=== PATIENT | male | born 1935 | race Caucasian/White ===

== ENCOUNTER → 2018-07-20 | Outpatient (CLI) | payer MEDICARE ==
[~2018-07-20] MED LIST: ACETAMINOPHEN325 M1 PO; APAP W/CODEINE1 TA2 PO; ASPIR 8181 MG PO; BACTRIM DS TAB1 EACH PO; BLOOD PRESSURE PILL; DUONEB 2.5-0.5 M3 ML INH; ELIQUIS2.5 MG PO; FLOMAX0.4 MG PO; HEALTHY HEART1 EAC1 PO; HYTRIN 5 M5 MG/1 CAP PO; IBUPROFEN 400400 M1 PO; IRON325 PO; LANSOPRAZOLE15 MG PO; LEVAQUIN 750 M750 MG PO; LISINOPRIL2.5 MG; LISINOPRIL5 MG PO; LOPERAMIDE 2 MG2 M1; LOPRESSOR25 PO; METAMUCIL PAC1 UDPKT PO; MIRALAX17 GM PO; NOHOMEMEDICATIONS; NORCO 5-325 TA1 EAC1 PO; NORCO 5-325 TA1 EACH PO; NORFLEX100 MG PO; OXYCODONE-APAP1 EAC4 PO; PACERONE 200 M200 M1 PO; PERCOCET 5-3251 EACH PO; SENOKOT-S1 TA1 PO; TOPROL XL25 MG PO; TRAMADOL 50 MG50 MG PO; TRINATE TABLET1 TAB PO; VALIUM2 MG PO; VITAMIN D-32000 UNIT PO; XARELTO10 MG PO; XELODA500 MG PO
== END ==
LOC: M.RAD 11:36
DX: C18.9 Malignant neoplasm of colon, unspecified (principal); M47.814 Spondylosis without myelopathy or radiculopathy, thoracic region; I10 Essential (primary) hypertension; J44.9 Chronic obstructive pulmonary disease, unspecified; I48.91 Unspecified atrial fibrillation

== ENCOUNTER 2018-11-24 19:11 | Emergency (ER) | payer MEDICARE ==
[~2018-11-24] VITALS: Ht 188 cm; Wt 88.9 kg
[~2018-11-24 19:11] MED LIST changes: +FLAGYL500 M1 PO; +LEVSIN0.125 MG PO; +TYLENOL EXTRA500 MG PO
[2018-11-24 20:22] LABS: URINE BLOOD 3+ (Negative); URINE COLOR YELLOW; URINE GLUCOSE-RANDOM NEGATIVE (Negative); URINE KETONES NEGATIVE (Negative); URINE LEUKOCYTES-REFLEX 1+ (Negative); URINE NITRITE-REFLEX NEGATIVE (Negative); URINE PROTEIN 2+ (Negative); URINE SPECIFIC GRAVITY >= 1.030 (1.005-1.030); URINE UROBILINOGEN 0.2 E.U./dl (0.2-1.0)
[2018-11-24 20:28] LABS: ICTOTEST (BILI CONFIRMATORY) Negative (Negative); URINE BILIRUBIN 1+ (Negative); URINE CLARITY CLOUDY
[2018-11-24 20:30] LABS: URINE RBC >20 Many /HPF (0-2)
[2018-11-24 20:31] LABS: URINE WBC-REFLEX 6-15 Few /HPF (0-5)
[2018-11-24 20:32] LABS: CASTS None Seen /LPF (None Seen); URIC ACID CRYSTALS 4-10 Moderate /LPF (None Seen)
[2018-11-24 20:33] LABS: BACTERIA-REFLEX 1-9 Few /HPF (None Seen); MUCUS None Seen strn/LPF (None Seen); SQUAMOUS NONE SEEN /LPF (0-3)
[2018-11-24 21:14] VITALS: BP 117/87
== END 2018-11-24 21:16 | disposition home or self-care (01) ==
LOC: M.ERS 19:11
PROVIDERS: Nurse Practitioner Family
DX: N36.8 Other specified disorders of urethra (principal); I10 Essential (primary) hypertension; J44.9 Chronic obstructive pulmonary disease, unspecified; I48.91 Unspecified atrial fibrillation; Z86.2 Personal history of diseases of the blood and blood-forming organs and certain disorders involving the immune mechanism; Z85.828 Personal history of other malignant neoplasm of skin; Z87.442 Personal history of urinary calculi

== ENCOUNTER 2018-12-12 12:34 | Inpatient (IN) | payer MEDICARE ==
[~2018-12-12] VITALS: Ht 188 cm; Wt 83.9 kg
--- NOTE | ~2018-12-12 | CON ---
[address] [address] CONSULTATION Name: IVETT BRASHER Room: [address] IN .R.#: [id number] Admission: 12/12/18 Attend Phys: Jose Miguel Kenny MD Discharge: Date of : 31 Report #: [id number] THIS REPORT FOR: //name// CC: Lavon Kenny REASON FOR CONSULT: Chronic pancreatitis. HISTORY OF PRESENT ILLNESS: This is an 83-year-old male who was admitted with complaint of suprapubic abdominal pain and decreased urine output. The patient's Espinosa was changed since hospitalization, and he is putting out urine. We were consulted due to his elevated lipase and calcification of the pancreas. Back in September, he had undergone endoscopic ultrasound and ERCP by Dr. Hoover. Then, there were both pancreatic and biliary stent were placed. The patient was supposed to follow up for another ERCP on 11/23, which was canceled since the patient was admitted with irregular heart rate to [facility] on the day before. Currently, he denies any abdominal pain, nausea, vomiting, dyspepsia and is tolerating meals. PAST MEDICAL HISTORY: Significant for history of chronic pancreatitis, AFib, hypertension, colon cancer, status post subtotal colectomy with ileostomy, COPD, renal failure, kidney stones, bladder stones, iron deficiency anemia. ALLERGIES AND MEDICATIONS: Please refer to hospital MAR. SOCIAL HISTORY: The patient denies tobacco or alcohol use. FAMILY HISTORY: Noncontributory. PHYSICAL EXAMINATION: VITAL SIGNS: Reveal blood pressure of 113/72, respirations 18, pulse 66, temperature 97.6. LUNGS: Clear. CARDIOVASCULAR: Regular. ABDOMEN: Soft, nontender, nondistended. Bowel sounds are positive. NEUROLOGIC: The patient is alert, oriented x 3. LABORATORY DATA: Reveals sodium of 139, potassium 4.5, BUN is 24, creatinine 1.7, glucose 102. AST 23, ALT is 30, alkaline phosphatase 82, lipase 988, total bilirubin is 1.1. WBC is 5.4 with hemoglobin of 14 and platelet of 224. IMAGING: CT of abdomen and pelvis was obtained. There was a 10-mm pancreatic calcification and chronic pancreatic duct dilatation. There was also trace of gas in the gallbladder and in the left intrahepatic bile duct, most probably due [place] [address] CONSULTATION Name: IVETT BRASHER Room: [address]#: [id number] Admission: 12/12/18 Attend Phys: Jose Miguel Kenny MD Discharge: Date of : 33 Report #: [id number] ASSESSMENT AND PLAN: We will schedule the patient for ERCP with stent removal. I will order a KUB to ensure that the pancreatic stent in place as well. By: 1106 [id number] Cleary MD /nt
[2018-12-12 12:39] VITALS: BP 131/85
[2018-12-12 13:09] LABS: ABSOLUTE BASOPHILS 0.1 thou/uL (0.0-0.2); ABSOLUTE EOSINOPHILS 0.1 thou/uL (0.0-0.7); ABSOLUTE LYMPHOCYTES 1.1 thou/uL (0.8-5.3); ABSOLUTE MONOCYTES 0.4 thou/uL (0.0-1.2); EOSINOPHILS 1.1 %; HEMATOCRIT 46.5 % (42.0-52.0); HEMOGLOBIN 15.5 gm/dL (14.0-18.0); MCH 30.2 pg (26.0-34.0); MCHC 33.4 g/dL (28.0-37.0); MCV 90.5 fL (80.0-100.0); MONOCYTES 6.6 %; MPV 8.4 fl. (7.2-11.1); NUCLEATED RBCS 0 /100WBC; PLATELET COUNT* 264 thou/uL (150-400); POLYS 75.3 %; RBC 5.14 mil/uL (4.50-6.00); RDW-CV 14.7 % (10.5-14.5); WBC 6.6 thou/uL (4.0-11.0)
[2018-12-12 13:13] LABS: CALCIUM 9.6 mg/dL (8.5-10.1); CREATININE 1.7 mg/dL (0.6-1.3); POTASSIUM 4.6 mmol/L (3.5-5.1)
[2018-12-12 13:17] LABS: ALBUMIN 3.5 g/dL (3.4-5.0); TOTAL BILIRUBIN 1.1 mg/dL (<0.1-1.0); TOTAL PROTEIN 7.6 g/dL (6.4-8.2)
[2018-12-12] MEDS ORDERED: FLOMAX0.4 MG PO (13:34)
[2018-12-12] MEDS ORDERED: PROSCAR 5MG TABL5 MG PO (13:34)
[2018-12-12 14:18] LABS: URINE BILIRUBIN NEGATIVE (Negative); URINE BLOOD 3+ (Negative); URINE CLARITY CLEAR; URINE COLOR YELLOW; URINE GLUCOSE-RANDOM NEGATIVE (Negative); URINE KETONES NEGATIVE (Negative); URINE LEUKOCYTES-REFLEX TRACE (Negative); URINE NITRITE-REFLEX NEGATIVE (Negative); URINE PROTEIN NEGATIVE (Negative); URINE SPECIFIC GRAVITY 1.025 (1.005-1.030); URINE UROBILINOGEN 0.2 E.U./dl (0.2-1.0)
[2018-12-12 14:34] LABS: SQUAMOUS NONE SEEN /LPF (0-3)
[2018-12-12 14:35] LABS: BACTERIA-REFLEX 1-9 Few /HPF (None Seen); CASTS None Seen /LPF (None Seen); CRYSTALS None Seen /LPF (None Seen); URINE RBC >20 Many /HPF (0-2); URINE WBC-REFLEX None Seen /HPF (0-5)
[2018-12-12 17:22] VITALS: BP 111/76
[2018-12-12 20:00] VITALS: BP 98/58
[2018-12-13 00:20] VITALS: BP 84/52
[2018-12-13 03:49] VITALS: BP 91/49
[2018-12-13 04:07] LABS: ABSOLUTE BASOPHILS 0.1 thou/uL (0.0-0.2); ABSOLUTE EOSINOPHILS 0.2 thou/uL (0.0-0.7); ABSOLUTE LYMPHOCYTES 1.1 thou/uL (0.8-5.3); ABSOLUTE MONOCYTES 0.5 thou/uL (0.0-1.2); ABSOLUTE NEUTROPHILS 3.6 thou/uL (1.6-8.1); BASOPHILS 1.1 %; EOSINOPHILS 3.4 %; HEMATOCRIT 42.6 % (42.0-52.0); LYMPHOCYTES 19.8 %; MCH 30.1 pg (26.0-34.0); MCHC 32.8 g/dL (28.0-37.0); MCV 91.7 fL (80.0-100.0); MONOCYTES 9.4 %; MPV 8.7 fl. (7.2-11.1); NUCLEATED RBCS 0 /100WBC; PLATELET COUNT* 224 thou/uL (150-400); POLYS 66.3 %; RBC 4.65 mil/uL (4.50-6.00); RDW-CV 14.9 % (10.5-14.5); WBC 5.4 thou/uL (4.0-11.0)
[2018-12-13 04:13] LABS: CALCIUM 8.9 mg/dL (8.5-10.1); CREATININE 1.7 mg/dL (0.6-1.3); POTASSIUM 4.5 mmol/L (3.5-5.1)
--- NOTE | 2018-12-13 06:03 | NUR ---
PT SLEPT FAIRLY WELL OVERNIGHT. TYLENOL GIVEN AT HS FOR CO HEADACHE WITH GOOD RELIEF. ILEOSTOMY WITH GOOD OUTPUT. BRITTON DRAINING JAMES CLOUDY URINE WITH SEDIMENT. HAS BEEN NPO SINCE MIDNIGHT ORDERED. GALENA. TURNS SIDE TO SIDE INDEP IN BED. RAC IVF INFUSING PER PUMP. TELE SR. DNR. ABLE TO USE CALL LITE AND MAKES NEEDS KNOWN.
--- NOTE | 2018-12-13 08:58 | EKG ---
[place] [address] ELECTROCARDIOGRAM REPORT Name: IVETT BRASHER Room: [address] ADM IN .R.#: [id number] Admission: 12/12/18 Attend Phys: Jose Miguel Kenny MD Discharge: Date of : 33 Report #: [id number] THIS REPORT FOR: //name// [facility] ED Test Date: 2018-12-12 Test Time: 14:49:47 Pat Name: IVETT BRASHER Department: Room: [facility] Gender: M Environmental Quality Analyst: LONNIE : 1935 Requested By: Radha Harrell Order Number: [id number] MD: Oswald Nesbitt Measurements Intervals [place] Rate: 70 P: -9 ME: 271 QRS: -74 QRSD: 152 T: -12 QT: 477 QTc: 515 Interpretive Statements Sinus rhythm Prolonged ME interval RBBB and LAFB Compared to ECG 11/24/2018 09:04:25 no change Electronically Signed On 12-13-2018 8:58:18 EDUCATION COURSES SALES REPRESENTATIVE by Oswald Nesbitt [email or web address] <ELECTRONICALLY SIGNED> By: Oswald Nesbitt MD, [facility] 12/13/18 0858 1449 1449 Oswald Nesbitt MD, [facility] /EPI
[2018-12-13 09:11] VITALS: BP 113/72
[2018-12-13 12:00] VITALS: BP 91/53
[2018-12-13 16:20] VITALS: BP 117/71
--- NOTE | 2018-12-13 16:36 | NUR ---
SW met with pt to complete initial assessment, introduce self, and SW role. Pt lives at home alone. Pt has friend support. Pt has RW, wc. Pt has hx of [facility] and hx of [facility]. Pt did not express any needs or have any questions or concerns at this time. SW to continue to follow to assist with safe dc planning.
--- NOTE | 2018-12-13 17:45 | NUR ---
PATIENT IS ALERT AND ORIENTED TODAY, VITAL SIGNS STABLE ON ROOM AIR. BRITTON IN PLACE, COLOSTOMY IN PLACE. CALL UP IN CHAIR MOST OF THE DAY. CALL LIGHT IS IN REACH, WILL CONTINUE TO MONITOR.
[2018-12-13 20:30] VITALS: BP 94/52
[2018-12-14] VITALS (7 sets, daily range): BP systolic 91–125; BP diastolic 52–75
--- NOTE | 2018-12-14 06:31 | NUR ---
PT SLEPT WELL AFTER RECEIVING TRAMADOL FOR HEADACHE AND GENERALLIZED DISCOMFORT AT HS. BRITTON DRAINING YELLOW URINE. ILEOSTOMY WITH LIQUID BROWN STOOL OUTPUT. R FA SL. TELE SR. AM LAB DRAWN. PT TURNED AND REPOSITIONED Q2 HOURS AND PRN FOR SKIN CARE AND COMFORT. DNR. PT HAS BEEN NPO SINCE MIDNIGHT IN CASE OF ERCP WITH STENT REMOVAL TODAY. ROOM AIR. ABLE TO USE CALL LITE AND MAKE NEEDS KNOWN. AOX4.
--- NOTE | 2018-12-14 15:40 | NUR ---
VARINDER was informed that pt will dc home alone today with HH services to follow. VARINDER spoke with pt about dc planning and pt preference for [facility] HH. VARINDER faxed referral, dc summary/orders/med list to [facility]. Pt niece to provide pt ride home.
--- NOTE | 2018-12-14 16:35 | NUR ---
PATIENT DISCHARGED TO HOME WITH HOME HEALTH. DISCHARGE PAPERS REVIEWED AND SIGNED. NO PRESCRIPTIONS. IV REMOVED. PATIENT ASSISTED WITH GETTING DRESSED. PATIENT STATES HE WAS MISSING JACKET, LOST AND FOUND NOTIFIED BUT NO JACKET FOUND. FAMILY UNSURE IF PATIENT WORE TO HOSPITAL. NO OTHER CONCERNS/COMPLAINTS VOICED. DENIES ANY FURTHER NEEDS. PATIENT TAKEN BY WHEELCHAIR TO EXIT. LEFT WITH FAMILY.
--- NOTE | 2018-12-14 17:55 | CON ---
[address] [address] CONSULTATION Name: IVETT BRASHER Room: [address]#: [id number] Admission: 12/12/18 Attend Phys: Jose Miguel Kenny MD Discharge: 12/14/18 Date of : 33 Report #: [id number] THIS REPORT FOR: //name// CC: Lavon Kenny INDICATION: Preoperative evaluation. HISTORY OF PRESENT ILLNESS: The patient is a very pleasant 83-year-old gentleman who is well known to myself. He has a history of paroxysmal atrial fibrillation and is currently maintaining sinus rhythm on amiodarone. He has been anticoagulated with Eliquis. He has had no bleeding problems with his Eliquis. By catheterization, he has nonocclusive coronary artery disease. By noninvasive studies, he has preserved left ventricular systolic function. He does carry a diagnosis of heart failure, although he appears euvolemic at this time and has not had any acute exacerbation of heart failure for quite some time. He is not having any chest pain to suggest angina. Vital signs are stable. He was admitted to the hospital last night with inability to empty his bladder. He has some large bladder stones for which we are anticipating surgery. Presently, the patient is without cardiac complaint. He denies palpitations. He is not having any significant shortness of breath. He denies chest pain. PAST MEDICAL HISTORY: 1. Paroxysmal atrial fibrillation. 2. Nonocclusive coronary disease by cardiac catheterization 06/03/2017. 3. Chronic combined heart failure, presently stable. 4. COPD. 5. Dementia. 6. Hypertension. 7. Aortic insufficiency. PAST SURGICAL HISTORY: 1. Bilateral carpal tunnel release. 2. Cataract extraction. FAMILY HISTORY: Noncontributory. SOCIAL HISTORY: The patient quit smoking many years ago. He does not drink alcohol. ALLERGIES: No known drug allergies. HOME MEDICATIONS: Tylenol p.r.n., amiodarone 200 mg b.i.d., Eliquis 2.5 mg b.i.d., hyoscyamine 0.125 mg q. 6 hours p.r.n., Levaquin as directed, metronidazole 500 mg as directed, multivitamin 1 tablet daily, tramadol [place] [address] CONSULTATION Name: IVETT BRASHER Room: [address]#: [id number] Admission: 12/12/18 Attend Phys: Jose Miguel Kenny MD Discharge: 12/14/18 Date of : 33 Report #: [id number] 4 hours p.r.n. PHYSICAL EXAMINATION: VITAL SIGNS: Blood pressure 91/53, pulse is 68 and regular. GENERAL: This is a pleasant elderly male, in no distress. Mood and affect appropriate. HEENT: Extraocular muscles intact. Mucous membranes are moist. Dentition poor. NECK: Shows no jugular venous distention. I do not appreciate carotid bruit. CHEST: Reveals clear lung abreu without wheezes or rales. CARDIOVASCULAR: Reveals a regular rhythm with normal S1 and S2. I did not appreciate gallop or murmur. ABDOMEN: Reveals normal bowel sounds. The abdomen is soft and nontender. EXTREMITIES: Shows no edema. LABORATORY DATA: A 12-lead EKG shows sinus rhythm with first degree AV block and right bundle branch block. No acute ST or T-wave abnormalities are noted. Labs are evaluated. Sodium 139, potassium 4.5, chloride 108, bicarbonate 25, BUN 24, creatinine 1.7, serum glucose 102. White blood cell count 5.4, hemoglobin 14.0, platelet count 224,000. IMPRESSION AND RECOMMENDATIONS: 1. Paroxysmal atrial fibrillation, presently maintaining sinus rhythm on amiodarone. Would continue 200 mg daily. Okay to hold Eliquis for upcoming surgery. Would resume postoperatively when felt safe. 2. Nonocclusive coronary artery disease. He is having no symptoms to suggest angina or acute coronary syndrome. 3. History of heart failure that appears chronic at this point in time. He is euvolemic and does not have any symptoms or signs to suggest acute heart failure. 4. Moderate aortic insufficiency by echocardiogram. Clinically, stable. 5. Hypertension, stable. From a cardiac standpoint, the patient is at low risk to proceed with surgery as proposed in the chart. No further cardiac evaluation necessary at this time. We will follow with you. <ELECTRONICALLY SIGNED> By: Cezar Daniel MD, FACC 12/14/18 1755 1715 [id number] Daniel MD, FACC /nt
== END 2018-12-14 16:35 | disposition home health service (06) | DRG 694 ==
LOC: M.ERS 12:34 → M.3W 14:25 → M.TBA-ER 14:25 → M.3W 17:33
PROVIDERS: Physician Assistant; ADMIT Family Medicine
DX: N21.0 Calculus in bladder (principal); K86.1 Other chronic pancreatitis; I13.0 Hypertensive heart and chronic kidney disease with heart failure and stage 1 through stage 4 chronic kidney disease, or unspecified chronic kidney disease; R33.9 Retention of urine, unspecified; J44.9 Chronic obstructive pulmonary disease, unspecified; I25.10 Atherosclerotic heart disease of native coronary artery without angina pectoris; I48.0 Paroxysmal atrial fibrillation; I50.9 Heart failure, unspecified; Z96.0 Presence of urogenital implants; I35.1 Nonrheumatic aortic (valve) insufficiency; N18.3 Chronic kidney disease, stage 3 (moderate); Z79.899 Other long term (current) drug therapy; Z90.49 Acquired absence of other specified parts of digestive tract; Z98.49 Cataract extraction status, unspecified eye

== ENCOUNTER 2018-12-18 19:57 | Emergency (ER) | payer MEDICARE ==
[~2018-12-18] VITALS: Ht 188 cm; Wt 87.1 kg
[~2018-12-18 19:57] MED LIST changes: +PROSCAR 5MG TABL5 MG PO
[2018-12-18] MEDS ORDERED: KEFLEX500 M1 PO (21:05)
[2018-12-18 21:23] VITALS: BP 101/64
== END 2018-12-18 21:23 | disposition home or self-care (01) ==
LOC: M.ERS 19:57
DX: T83.098A Other mechanical complication of other urinary catheter, initial encounter (principal); I10 Essential (primary) hypertension; J44.9 Chronic obstructive pulmonary disease, unspecified; I48.91 Unspecified atrial fibrillation; Z85.828 Personal history of other malignant neoplasm of skin; Z90.49 Acquired absence of other specified parts of digestive tract; Z87.442 Personal history of urinary calculi; Z86.2 Personal history of diseases of the blood and blood-forming organs and certain disorders involving the immune mechanism

== ENCOUNTER 2018-12-21 08:28 | Observation (INO) | payer MEDICARE ==
[~2018-12-21] VITALS: Ht 188 cm; Wt 83.7 kg
[~2018-12-21 08:28] MED LIST changes: +KEFLEX500 M1 PO
[2018-12-21 11:57] VITALS: BP 115/72
--- NOTE | 2018-12-21 15:04 | OP ---
[facility] [address] [place] [address] OPERATIVE REPORT Name: SAMEERAIVETT Rusty Room: [address] IN .R.#: [id number] Admission: 12/21/18 Attend Phys: Bella Lovell, Discharge: Date of : 33 Report #: [id number] THIS REPORT FOR: //name// CC: [facility] Bella Ferrari DATE OF SERVICE: 12/21/2018 PREOPERATIVE DIAGNOSES: Bladder stones, urinary retention and benign prostatic hypertrophy. POSTOPERATIVE DIAGNOSES: Bladder stones, urinary retention and benign prostatic hypertrophy. PROCEDURE: Cystolitholapaxy and fulguration of prostatic and bladder bleeding. SURGEON: Bella Lovell M.D. ANESTHESIA: General. ESTIMATED BLOOD LOSS: None. COMPLICATIONS: None. SPECIMENS: Bladder stones. INDICATIONS FOR PROCEDURE: The patient is an 83-year-old male who was found to have two very large bladder stones on CT scan. He has also had urinary retention requiring catheterization. He is currently started on dual BPH therapy and now presents for cystolitholapaxy. Risks of procedure were discussed including but not limited to infection, bleeding, injury to the urethra, bladder, or ureters; bladder perforation requiring open repair, cardiopulmonary complications. He voiced understanding and wished to proceed. DESCRIPTION OF PROCEDURE: After informed consent was obtained, the patient was taken to the operating suite and placed supine. After induction of general anesthesia, he was placed in dorsal lithotomy position, genitalia were prepped and draped in standard fashion. A rigid cystoscopy was performed with 30 and 70-degree lenses. His anterior urethra was normal. Prostate showed bilobar hyperplasia with moderate visual obstruction. He approximately had a 2 cm prostate with a small median lobe. The bladder was carefully inspected. He had two large bladder stones, one was 3 cm, one was [address] scan. He had scattered spot areas of erythema, likely from irritation from the stone and a moderately trabeculated bladder. There were no tumors. His bladder just looked like it was beat up a little bit from having a catheter [place] [address] OPERATIVE REPORT Name: IVETT BRASHER Room: [address] IN [facility].#: [id number] Admission: 12/21/18 Attend Phys: Bella Lovell, Discharge: Date of : 33 Report #: [id number] There were no concerning areas of erythema, however. The scope was then changed to the 25-Hungarian sheath, which was placed easily. Then, with the holmium laser the stones were broken up into small fragments and dusted. This took approximately 1 hour and 15 minutes given the large nature of the stones. Care was taken to avoid injuring the bladder mucosa or the UOs. Once all fragments were adequately dusted, pieces were drained out of the scope directly as well as an [facility] evacuator was used. This was successful and all bladder stones were removed. He did have an area posterior to the trigone that was oozing a bit and this was fulgurated with Bugbee cautery. The same thing in the prostatic urethra on the median lobe, he had several oozing areas from irritation from the scope and these were spot cauterized with Bugbee. This was successful. UOs were identified and uninjured. Once hemostasis was excellent, the scope was removed and a 22 Hungarian 3-way catheter was placed. The balloon was inflated to 30 mL. The catheter was irrigated with a Agueda syringe and this was clear. He was attached to continuous bladder irrigation with normal saline and this was running clear at the end of the case. He was then awoken, extubated, and taken to recovery in satisfactory condition. He will be admitted to the floor on CBI and plan to perform a voiding trial tomorrow if he is clear off CBI. <ELECTRONICALLY SIGNED> By: Bella Lovell MD 12/21/18 1504 1445 1458Bella Lovell MD /nt
[2018-12-21 16:05] LABS: CREATININE 1.6 mg/dL (0.6-1.3); HEMATOCRIT 40.2 % (42.0-52.0); HEMOGLOBIN 13.2 gm/dL (14.0-18.0); MCH 29.7 pg (26.0-34.0); MCHC 32.8 g/dL (28.0-37.0); MCV 90.5 fL (80.0-100.0); MPV 8.7 fl. (7.2-11.1); POTASSIUM 4.2 mmol/L (3.5-5.1); RBC 4.44 mil/uL (4.50-6.00); RDW-CV 14.8 % (10.5-14.5); WBC 8.4 thou/uL (4.0-11.0)
[2018-12-21 16:22] VITALS: BP 119/63
[2018-12-21 20:15] VITALS: BP 98/53
[2018-12-22 08:15] VITALS: BP 125/66
[2018-12-22 14:04] LABS: HEMATOCRIT 41.6 % (42.0-52.0); HEMOGLOBIN 13.5 gm/dL (14.0-18.0); MCH 29.6 pg (26.0-34.0); MCHC 32.5 g/dL (28.0-37.0); MCV 91.1 fL (80.0-100.0); MPV 8.4 fl. (7.2-11.1); RBC 4.56 mil/uL (4.50-6.00); WBC 11.7 thou/uL (4.0-11.0)
[2018-12-22 14:12] LABS: CALCIUM 9.1 mg/dL (8.5-10.1); CREATININE 1.6 mg/dL (0.6-1.3); POTASSIUM 4.4 mmol/L (3.5-5.1)
[2018-12-22 16:17] VITALS: BP 110/66
[2018-12-22 21:20] VITALS: BP 114/74
[2018-12-23 00:30] VITALS: BP 126/82
[2018-12-23 04:13] VITALS: BP 116/76
[2018-12-23 09:00] VITALS: BP 105/61
[2018-12-23 09:01] LABS: HEMATOCRIT 39.6 % (42.0-52.0); HEMOGLOBIN 13.3 gm/dL (14.0-18.0); MCH 30.5 pg (26.0-34.0); MCHC 33.5 g/dL (28.0-37.0); MCV 91.2 fL (80.0-100.0); MPV 8.3 fl. (7.2-11.1); RBC 4.34 mil/uL (4.50-6.00); RDW-CV 14.6 % (10.5-14.5); WBC 7.9 thou/uL (4.0-11.0)
[2018-12-23 09:18] LABS: CALCIUM 8.9 mg/dL (8.5-10.1); CREATININE 1.5 mg/dL (0.6-1.3); POTASSIUM 3.9 mmol/L (3.5-5.1)
[2018-12-23 11:04] VITALS: BP 105/61
[2018-12-23] MEDS ORDERED: VITAMIN D1000 UNI1 PO (11:18)
[2018-12-23] MEDS ORDERED: LEVSIN0.125 MG PO (11:21)
[2018-12-23] MEDS ORDERED: TRAMADOL 50 MG50 MG PO (11:23)
[2018-12-23 13:10] VITALS: BP 105/61
[2018-12-23 13:11] VITALS: BP 105/61
== END 2018-12-23 11:40 | disposition home or self-care (01) ==
LOC: M.PRE 08:28 → M.TBA 11:13 → M.ORTHSURG 11:13
PROVIDERS: Nurse Practitioner Adult Health; ADMIT Urology
DX: N40.1 Benign prostatic hyperplasia with lower urinary tract symptoms (principal); R33.8 Other retention of urine; N21.0 Calculus in bladder

== ENCOUNTER 2019-01-16 05:00 | Inpatient (IN) | payer MEDICARE ==
[~2019-01-16] VITALS: Ht 188 cm; Wt 75.3 kg
[~2019-01-16 05:00] MED LIST changes: +VITAMIN D1000 UNI1 PO
[2019-01-16 05:07] VITALS: BP 140/77
[2019-01-16] MEDS ORDERED: ELIQUIS2.5 MG PO (05:11)
[2019-01-16] MEDS ORDERED: LIPITOR 20 MG T20 M1 PO (05:11)
[2019-01-16 05:46] LABS: ABSOLUTE BASOPHILS 0.1 thou/uL (0.0-0.2); ABSOLUTE EOSINOPHILS 0.1 thou/uL (0.0-0.7); ABSOLUTE LYMPHOCYTES 1.5 thou/uL (0.8-5.3); ABSOLUTE MONOCYTES 0.7 thou/uL (0.0-1.2); ABSOLUTE NEUTROPHILS 4.4 thou/uL (1.6-8.1); BASOPHILS 1.2 %; EOSINOPHILS 1.4 %; HEMOGLOBIN 13.1 gm/dL (14.0-18.0); LYMPHOCYTES 21.7 %; MCH 29.9 pg (26.0-34.0); MCHC 33.5 g/dL (28.0-37.0); MONOCYTES 10.1 %; MPV 8.3 fl. (7.2-11.1); NUCLEATED RBCS 0 /100WBC; PLATELET COUNT* 264 thou/uL (150-400); POLYS 65.6 %; RBC 4.38 mil/uL (4.50-6.00); RDW-CV 15.2 % (10.5-14.5); WBC 6.7 thou/uL (4.0-11.0)
[2019-01-16 05:54] LABS: PROTIME 10.7 Seconds (9.20-11.50)
[2019-01-16 06:01] LABS: CALCIUM 9.2 mg/dL (8.5-10.1); CREATININE 1.4 mg/dL (0.6-1.3); POTASSIUM 4.1 mmol/L (3.5-5.1); TROPONIN-I LEVEL 0.11 ng/mL (<0.06)
[2019-01-16 06:03] LABS: ALBUMIN 3.3 g/dL (3.4-5.0); TOTAL BILIRUBIN 0.6 mg/dL (<0.1-1.0); TOTAL PROTEIN 6.9 g/dL (6.4-8.2)
[2019-01-16 07:20] LABS: URINE BILIRUBIN NEGATIVE (Negative); URINE BLOOD TRACE (Negative); URINE CLARITY CLEAR; URINE COLOR YELLOW; URINE GLUCOSE-RANDOM NEGATIVE (Negative); URINE KETONES NEGATIVE (Negative); URINE LEUKOCYTES-REFLEX NEGATIVE (Negative); URINE NITRITE-REFLEX NEGATIVE (Negative); URINE PROTEIN NEGATIVE (Negative); URINE SPECIFIC GRAVITY 1.025 (1.005-1.030); URINE UROBILINOGEN 0.2 E.U./dl (0.2-1.0)
--- NOTE | 2019-01-16 09:45 | EKG ---
[place] [address] ELECTROCARDIOGRAM REPORT Name: IVETT BRASHER Room: [place] [address] ADM IN [facility].#: [id number] Admission: 01/16/19 Attend Phys: Sendy Jung MD Discharge: Date of : 33 Report #: [id number] THIS REPORT FOR: //name// [facility] ED Test Date: 2019-01-16 Test Time: 05:06:14 Pat Name: IVETT BRASHER Department: Room: [facility] Gender: M Production Foreman: GL : 1935 Requested By: Violet James Order Number: [id number] MD: Oswald Nesbitt Measurements Intervals [place] Rate: 69 P: -12 MS: 267 QRS: -52 QRSD: 162 T: -9 QT: 501 QTc: 537 Interpretive Statements Sinus rhythm Prolonged MS interval RBBB and LAFB Compared to ECG 12/12/2018 14:49:47 No significant changes Electronically Signed On 01-16-2019 9:45:18 MARINE PLUMBER by Oswald Nesbitt [email or web address] <ELECTRONICALLY SIGNED> By: Oswald Nesbitt MD, [facility] 01/16/19 0945 0506 0506 Oswald Nesbitt MD, [facility] /EPI
[2019-01-16 13:29] VITALS: BP 135/82
[2019-01-16] MEDS ORDERED: FLOMAX0.4 MG PO (14:08)
[2019-01-16 15:00] VITALS: BP 125/77
--- NOTE | 2019-01-16 18:04 | NUR ---
PT ADMITTED WITH PAROXYSMAL AFIB. PT DENIES ANY DISCOMFORT, LIGHTHEADNESS OR PALPITATIONS CURRENTLY. STEADY GAIT WITH CANE TO BATHROOM. PT DOES SEF CARE OF COLOSTOMY. FALL PRECAUTIONS DISCUSSED, FALL AGREEMENT SIGNED. PT ABLE TO MAKE NEEDS KNOWN, CALL LIGHT IN REACH
[2019-01-16 20:00] VITALS: BP 96/57
[2019-01-17] VITALS: BP 117/78
[2019-01-17 04:00] VITALS: BP 128/80
--- NOTE | 2019-01-17 05:17 | NUR ---
Pt a/o x 4. ASA'CARSARMIUT. RA. VSS. Up with standby assist and cane, steady on feet. C/o headache and insomnia, meds given per order. Pt resting in bed comfortably at this time with no apparent distress noted. Bed alarm on. Fall precautions maintained. Call light within reach. Will continue to monitor.
[2019-01-17 05:42] LABS: ABSOLUTE BASOPHILS 0.1 thou/uL (0.0-0.2); ABSOLUTE EOSINOPHILS 0.1 thou/uL (0.0-0.7); ABSOLUTE LYMPHOCYTES 0.9 thou/uL (0.8-5.3); ABSOLUTE MONOCYTES 0.7 thou/uL (0.0-1.2); ABSOLUTE NEUTROPHILS 5.3 thou/uL (1.6-8.1); BASOPHILS 0.8 %; EOSINOPHILS 1.6 %; HEMATOCRIT 39.6 % (42.0-52.0); HEMOGLOBIN 13.1 gm/dL (14.0-18.0); LYMPHOCYTES 12.9 %; MCH 29.5 pg (26.0-34.0); MCV 89.4 fL (80.0-100.0); MPV 8.5 fl. (7.2-11.1); NUCLEATED RBCS 0 /100WBC; PLATELET COUNT* 252 thou/uL (150-400); POLYS 74.7 %; RBC 4.43 mil/uL (4.50-6.00); RDW-CV 15.1 % (10.5-14.5); WBC 7.1 thou/uL (4.0-11.0)
[2019-01-17 05:58] LABS: CALCIUM 9.3 mg/dL (8.5-10.1); CREATININE 1.6 mg/dL (0.6-1.3); POTASSIUM 4.2 mmol/L (3.5-5.1)
[2019-01-17 08:15] VITALS: BP 121/71
--- NOTE | 2019-01-17 10:10 | NUR ---
RECEIVED REPORT FROM RESAW OPERATOR NURSE AND ASSUMED CARE OF PT AT 0730.PT IS A/OX4,VSS AND NO COMPLAINTS OF PAIN.TRACING SR WITH 1ST DEGREE BBB ON MONITOR.IV PATENT ONLEFT AC AND SALINE LOCKED.PT IS UP STAND BY ASSIST.PT HAS COLOSTOMY SECURE,PATENT,STOMA BRIGHT RED AND MOIST. NO SKIN ISSUES.HOURLY ROUNDING DONE FOR SAFETY.CALL LIGHT AND SAFETY PRECAUTIONS ON PLACE.WILL CONTINUE TO MONITOR.
--- NOTE | 2019-01-17 11:04 | NUR ---
THIS NURSE REVIEWED ORIENTEE NURSE CORBIN'S CHARTING AND AM NOTE AND AGREES.
[2019-01-17 11:54] VITALS: BP 114/60
--- NOTE | 2019-01-17 12:59 | NUR ---
Pt is A&O. Resides at home with his GF. GF completes the cooking and clean, Pt drives. Pt has a RW, wc and cane at home, Pt only uses the cane. Pt also has a stair lift at home. Pt is current with [facility] and wants to resume at ct. Hx of [facility]. CM will fax orders to [facility] at [facility]. Following.
--- NOTE | 2019-01-17 15:42 | 2DMMODE ---
[place] [address] 2 D/M-MODE ECHOCARDIOGRAM Name: IVETT BRASHER Room: [address] IN [facility]#: [id number] Admission: 01/16/19 Attend Phys: Sendy Jung, Discharge: Date of : 31 Date of Service: 01/17/19 1542 Report #: [id number] THIS REPORT FOR: //name// APPROVED REPORT Study performed: 01/17/2019 14:48:42 EXAM: Comprehensive 2D, Doppler, and color-flow Echocardiogram Patient Location: In-Patient Room #: [facility] Status: routine BSA: 2.01 HR: 67 bpm BP: 114/60 mmHg Other Information Study Quality: Good Indications Atrial Fibrillation 2D Dimensions IVSd: 16.35 (7-11mm) LVOT Diam: 22.74 (18-24mm) LVDd: 61.04 mm PWd: 14.55 (7-11mm) LVDs: 47.23 (25-40mm) Aortic Root: 39.53 mm Volumes Left Atrial Volume (Systole) LA ESV Index: 67.70 mL/m2 Aortic Valve AoV Peak Zack.: 1.11 m/s AO Peak Gr.: 4.95 mmHg LVOT Max P.91 mmHg AO Mean Gr.: 2.78 mmHg LVOT Mean P.27 mmHg LVOT Max V: 0.85 m/s AO V2 VTI: 21.21 cm LVOT Mean V: 0.51 m/s ROBERT (VTI): 3.15 cm2 LVOT V1 VTI: 16.42 cm AI [place]: 1.89 m/s2 AI PHT: 644.80 ms Mitral Valve E/A Ratio: 1.28 MV Decel. Time: 223.77 [place] [address] 2 D/M-MODE ECHOCARDIOGRAM Name: IVETT BRASHER Room: [address] IN [facility]#: [id number] Admission: 01/16/19 Attend Phys: Sendy Jung, Discharge: Date of : 31 Date of Service: 01/17/19 1542 Report #: [id number] MV E Max Zack.: 0.61 m/s MV PHT: 64.89 ms MVA (PHT): 3.39 cm2 TDI E/Lateral E': 7.63 E/Medial E': 10.17 Medial E' Zack.: 0.06 m/s Lateral E' Zack.: 0.08 m/s Pulmonary Valve PV Peak Zack.: 0.75 m/s PV Peak Gr.: 2.26 mmHg Tricuspid Valve RAP Estimate: 5.00 mmHg TR Peak Gr.: 49.22 mmHg RVSP: 54.00 mmHg PA Pressure: 54.00 mmHg Left Ventricle The left ventricle is normal size. There was mild global hypokinesis. Moderate concentric left ventricular hypertrophy. Left ventricular systolic function is mildly decreased. LVEF is 45-50%. Transmitral Doppler flow pattern suggests restrictive physiology. Right Ventricle Right ventricle is dilated. The right ventricular systolic function is normal. Atria Left atrium is severely dilated. Right atrium is moderately dilated.Right atrium is dilated. Aortic Valve Mild aortic valve sclerosis. Mild aortic regurgitation. There is no aortic valvular stenosis. Mitral Valve The mitral valve is normal in structure. Mild mitral regurgitation. No evidence of mitral valve stenosis. Tricuspid Valve The tricuspid valve is normal in structure. Mild tricuspid regurgitation. Moderate pulmonary hypertension. Pulmonic Valve The pulmonary valve is normal in structure. [place] [address] 2 D/M-MODE ECHOCARDIOGRAM Name: IVETT BRASHER Room: [address] IN [facility]#: [id number] Admission: 01/16/19 Attend Phys: Sendy Jung, Discharge: Date of : 31 Date of Service: 01/17/19 1542 Report #: [id number] Great Vessels The aortic root is normal in size. IVC is not well visualized. Pericardium There is no pericardial effusion. <Conclusion> The left ventricle is normal size. Moderate concentric left ventricular hypertrophy. Left ventricular systolic function is mildly decreased. LVEF is 45-50%. Transmitral Doppler flow pattern suggests restrictive physiology. Right ventricle is dilated. Left atrium is severely dilated. Mild aortic valve sclerosis. Mild aortic regurgitation. Mild mitral regurgitation. Mild tricuspid regurgitation. Moderate pulmonary hypertension. <ELECTRONICALLY SIGNED> By: Cezar Daniel MD, FACC 01/17/19 1542 1542 1542 Cezar Daniel MD, FACC /INF
[2019-01-17 15:53] VITALS: BP 105/57
--- NOTE | 2019-01-17 16:49 | NUR ---
VSS,TRACING SR WITH 1ST DEGREE BBB ON THE MONITOR WITH NO CHANGE.HOURLY ROUNDING DONE FOR PT SAFETY.PT REMAINS CALM AND COOPERATIVE WITH NO PAIN.ECHO DONE TODAY.IV PATENT ON LEFT AC AND SALINE LOCKED.PT INFORMED OF PLAN OF CARE AND COMMUNICATES UNDERSTANDING BUT NEEDS REINFORCEMENT.CALL LIGHT AND FALL PRECAUTIONS IN PLACE.WILL CONTINUE TO MONITOR FOR THE DURATION OF SHIFT.
--- NOTE | 2019-01-17 16:57 | CON ---
[address] [address] CONSULTATION Name: IVETT BRASHER Room: [address] IN .R.#: [id number] Admission: 01/16/19 Attend Phys: Sendy Jung MD Discharge: Date of : 33 Report #: [id number] THIS REPORT FOR: //name// CC: Sendy Ferrari DATE OF SERVICE: 01/16/2019 HISTORY OF PRESENT ILLNESS: The patient is an 83-year-old single white male who I was asked to see in the hospital after he complained of being dizzy. The patient has been followed by my partner, Dr. Daniel. He actually saw my nurse practitioner Kath in the office 2 months ago. He has a history of paroxysmal atrial fibrillation and has been chronically on amiodarone and anticoagulated with Eliquis. Previous he required a cardioversion in November. He actually had a heart catheterization in 2017 from the right femoral artery by Dr. Mejia that showed only 30% narrowing of the LAD, 40% narrowing of the circumflex. Ejection fraction of 50%. When he saw my nurse practitioner 2 months ago, he noticed some fatigue. My nurse practitioner made no changes in his medications. The patient states that he came to the Emergency Room today because he was feeling lightheaded. He felt his heart beating irregular. He denied any significant chest pain, shortness of breath or syncope. PAST MEDICAL HISTORY: He has had no other major surgical procedures. He has had carpal tunnel release and cataract extraction. He does have a history of hypertension. MEDICATIONS: Consists of amiodarone, Eliquis, Synthroid and tramadol. ALLERGIES: He has no known drug allergies. FAMILY HISTORY: His father had a high blood pressure. SOCIAL HISTORY: He is and lives by himself in [place]. No smoking or alcohol abuse. REVIEW OF SYSTEMS: He has had no history of stroke, asthma, peptic ulcer disease, bleeding or liver disease. He does have a history of colon cancer and has a colostomy. He has problems of urinary retention and has had a Espinosa in place. No psychiatric illness. No chronic skin condition. PHYSICAL EXAMINATION: GENERAL: Revealed an elderly, frail-appearing male, lying in bed, appeared in no distress. VITAL SIGNS: He had a blood pressure of 130/80 and pulse 60. He is afebrile. HEENT: He is anicteric. Conjunctivae pink. [place] [address] CONSULTATION Name: IVETT BRASHER Rusty Room: [address]#: [id number] Admission: 01/16/19 Attend Phys: Sendy Jung MD Discharge: Date of : 33 Report #: [id number] NECK: Veins do not appear distended. CHEST: Clear to auscultation. CARDIAC: Regular rate and rhythm. ABDOMEN: Soft. EXTREMITIES: No edema. SKIN: Cool and dry. NEUROLOGIC: Nonfocal. LABORATORY DATA: His ECG showed a sinus rhythm with first-degree AV block and a right bundle-branch block, no significant QT prolongation. Workup in the Emergency Room, he had a portable chest x-ray that showed cardiomegaly, otherwise clear lung abreu. He had previous echocardiogram in 2017 showing ejection fraction estimated at 45% with moderate aortic insufficiency. His lab work, sodium 142, potassium 4.1, BUN 22, creatinine 1.4. Troponin 0.10. BNP 2569. His white blood cell count 6.7 and hemoglobin 13.1. IMPRESSION AND RECOMMENDATIONS: 1. Paroxysmal atrial fibrillation. The patient appears to be remaining in sinus rhythm on amiodarone. I would decrease the dose to 200 mg a day. If he continues to complain of dizziness, I would consider discontinuing the amiodarone, which can lead to difficulty with equilibrium. The patient is chronically anticoagulated. No recent bleeding problems. 2. Hypertension. Blood pressure appears controlled at this time. 3. History of colon cancer. The patient has a colostomy in place. <ELECTRONICALLY SIGNED> By: Oswald Nesbitt MD, [facility] 01/17/19 1657 1509 [id number] Nesbitt MD, FAC /nt
--- NOTE | 2019-01-17 17:01 | NUR ---
THIS NURSE REVIEWED CHARLES CORBIN'S PM NOTE AND AGREES.
[2019-01-17 20:00] VITALS: BP 129/72
[2019-01-18] VITALS: BP 118/69
[2019-01-18 04:00] VITALS: BP 120/69; BP 98/71
--- NOTE | 2019-01-18 05:57 | NUR ---
Pt a/o x 4. RA. Up with standby assist. VSS. LLQ Colostomy managed by pt self. No apparent distress noted during entire shift. Fall precautions maintained. Call light within reach. Will continue to monitor.
[2019-01-18 08:11] VITALS: BP 115/66
--- NOTE | 2019-01-18 09:51 | NUR ---
ASSUMED CARE OF PATIENT FROM NIGHT NURSE AT 0720. PATIENT IS A&O X4. VSS. TRACING SR 1ST, DEGREE HEART BLOCK, AND BBB ON MONITOR. IV PATENT AND SALINE LOCKED. PATIENT IS UP W/ STAND BY ASSIST. PATIENT REPORTED NO PAIN. COLOSTOMY SECURE AND PATENT.STOMA IS MOIST AND RED. FALL PRECAUTIONS IN PLACE. BEDRAILS UP AND BED ALARM IN PLACE. PATIENT LEFT TO EAT BREAKFAST. ITEMS WITHIN REACH OF PATIENT. WILL CONTINUE TO [facility].
--- NOTE | 2019-01-18 10:08 | NUR ---
THIS NURSE REVIEWED [facility]'S CHARTING AND AM NOTE AND AGREES.
[2019-01-18] MEDS ORDERED: PACERONE 200 M200 M1 PO (11:25)
[2019-01-18 11:30] VITALS: BP 116/60
[2019-01-18 12:00] VITALS: BP 116/60
--- NOTE | 2019-01-18 13:19 | NUR ---
PATIENT HAD IV D/C'D AND CREMATORIUM OPERATOR REMOVED,RETURNED TO NURSING STATION. CALL WAS MADE TO EXTENDED FAMILY THAT PATIENT WAS BEING DISCHARGED. DISCHARGE INFORMATION WAS DISCUSSED WITH PATIENT AND A COPY WAS GIVEN. ALL PERSONAL BELONGINGS PACKED UP AND GIVEN TO PATEINT. PATIENT LEFT UNIT AT 1310 IN A WHEELCHAIR WITH NURSING STAFF AND LEFT IN A CAR WITH SON.
--- NOTE | 2019-01-18 13:25 | NUR ---
THIS NURSE REVIEWED [facility]'S DISCHAGRE NOTE AND AGREES.
--- NOTE | 2019-01-18 13:34 | NUR ---
Pt discharged to home today, CM faxed resumption orders to [facility].
== END 2019-01-18 13:10 | disposition home health service (06) | DRG 280 ==
LOC: M.ERS 05:00 → M.2W 06:53 → M.TBA-ER 06:53 → M.2W 14:56
PROVIDERS: Emergency Medicine; Internal Medicine; ADMIT Internal Medicine
DX: I21.A1 Myocardial infarction type 2 (principal); I50.33 Acute on chronic diastolic (congestive) heart failure; K86.1 Other chronic pancreatitis; I48.0 Paroxysmal atrial fibrillation; I11.0 Hypertensive heart disease with heart failure; Z87.442 Personal history of urinary calculi; Z79.899 Other long term (current) drug therapy; Z85.038 Personal history of other malignant neoplasm of large intestine; Z82.49 Family history of ischemic heart disease and other diseases of the circulatory system; Z93.3 Colostomy status

== ENCOUNTER → 2019-03-15 | Outpatient (CLI) | payer MEDICARE ==
[~2019-03-15] MED LIST changes: +LIPITOR 20 MG T20 M1 PO
[2019-03-15 12:28] LABS: ABSOLUTE EOSINOPHILS 0.1 thou/uL (0.0-0.7); ABSOLUTE LYMPHOCYTES 0.9 thou/uL (0.8-5.3); ABSOLUTE MONOCYTES 0.4 thou/uL (0.0-1.2); ABSOLUTE NEUTROPHILS 4.6 thou/uL (1.6-8.1); BASOPHILS 0.8 %; EOSINOPHILS 0.9 %; HEMATOCRIT 42.5 % (42.0-52.0); LYMPHOCYTES 15.1 %; MCH 29.7 pg (26.0-34.0); MCHC 33.1 g/dL (28.0-37.0); MCV 89.9 fL (80.0-100.0); MONOCYTES 6.9 %; MPV 8.2 fl. (7.2-11.1); NUCLEATED RBCS 0 /100WBC; PLATELET COUNT* 208 thou/uL (150-400); POLYS 76.3 %; RBC 4.73 mil/uL (4.50-6.00); RDW-CV 15.8 % (10.5-14.5); WBC 6.1 thou/uL (4.0-11.0)
[2019-03-15 12:43] LABS: ALBUMIN 3.4 g/dL (3.4-5.0); CALCIUM 8.9 mg/dL (8.5-10.1); CREATININE 1.5 mg/dL (0.6-1.3); POTASSIUM 4.6 mmol/L (3.5-5.1); TOTAL BILIRUBIN 0.8 mg/dL (<0.1-1.0); TOTAL PROTEIN 7.1 g/dL (6.4-8.2)
[2019-03-15 13:51] LABS: ESR (SEDRATE) 3 mm/hr (0-20)
== END ==
LOC: M.MRI 11:07
PROVIDERS: Psychiatry & Neurology Neuromuscular Medicine
DX: I63.9 Cerebral infarction, unspecified (principal); I48.91 Unspecified atrial fibrillation; Z79.01 Long term (current) use of anticoagulants

== ENCOUNTER 2019-06-03 23:55 | Inpatient (IN) | payer MEDICARE ==
[~2019-06-03] VITALS: Ht 188 cm; Wt 85.7 kg
[2019-06-03 23:58] VITALS: BP 129/73
[2019-06-04 00:37] LABS: ABSOLUTE BASOPHILS 0.1 thou/uL (0.0-0.2); ABSOLUTE LYMPHOCYTES 0.6 thou/uL (0.8-5.3); ABSOLUTE MONOCYTES 0.7 thou/uL (0.0-1.2); ABSOLUTE NEUTROPHILS 10.6 thou/uL (1.6-8.1); BASOPHILS 0.5 %; EOSINOPHILS 0.1 %; HEMATOCRIT 40.8 % (42.0-52.0); HEMOGLOBIN 13.5 gm/dL (14.0-18.0); LYMPHOCYTES 5.2 %; MCH 29.3 pg (26.0-34.0); MCV 88.9 fL (80.0-100.0); MONOCYTES 5.8 %; MPV 8.6 fl. (7.2-11.1); NUCLEATED RBCS 0 /100WBC; PLATELET COUNT* 227 thou/uL (150-400); POLYS 88.4 %; RBC 4.59 mil/uL (4.50-6.00); RDW-CV 14.6 % (10.5-14.5)
[2019-06-04 00:45] LABS: CREATININE 1.8 mg/dL (0.6-1.3); POTASSIUM 4.4 mmol/L (3.5-5.1)
[2019-06-04 00:46] LABS: INR 1.1; PROTIME 10.9 Seconds (9.20-11.50)
[2019-06-04 00:56] LABS: ALBUMIN 3.3 g/dL (3.4-5.0); TOTAL BILIRUBIN 1.6 mg/dL (<0.1-1.0); TOTAL PROTEIN 6.9 g/dL (6.4-8.2); TROPONIN-I LEVEL 0.1 ng/mL (<0.06)
[2019-06-04 03:40] VITALS: BP 131/73
[2019-06-04 03:48] VITALS: BP 118/68
--- NOTE | 2019-06-04 06:30 | NUR ---
PATIENT UP FROM ER AT 0240. PT ALERT/ORIENTED X4. PT C/O INABILITY TO URINATE AT HOME AND THAT HIS HEART HAD BEEN RACING. PT LIVES AT HOME WITH A FRIEND, IS UP WITH WALKER. PT DENIES PAIN AT THIS TIME. PT WITH COLOSTOMY THAT HE HAS FOR APPROX THREE YEARS AND DOES SELF CARE OF IT. PT DENIES NEEDS AT THIS TIME. FLUIDS INFUSING PER DR ORDER IN RT FOREARM. SIDERAILS UPX2 AND BED ALARM ON. WILL CONTINUE TO MONITOR.
[2019-06-04 08:09] VITALS: BP 150/82
[2019-06-04 16:00] VITALS: BP 107/64
[2019-06-04 16:49] LABS: URINE BILIRUBIN NEGATIVE (Negative); URINE BLOOD 3+ (Negative); URINE CLARITY CLEAR; URINE COLOR YELLOW; URINE GLUCOSE-RANDOM NEGATIVE (Negative); URINE KETONES NEGATIVE (Negative); URINE LEUKOCYTES-REFLEX NEGATIVE (Negative); URINE NITRITE-REFLEX NEGATIVE (Negative); URINE PROTEIN TRACE (Negative); URINE SPECIFIC GRAVITY 1.025 (1.005-1.030); URINE UROBILINOGEN 0.2 E.U./dl (0.2-1.0)
--- NOTE | 2019-06-04 17:02 | NUR ---
PT A&Ox4. VITALS STABLE. UP STB WITH WALKER TO BATHROOM. IV PATENT. TOLERATING DIET, NPO AFTER MIDNIGHT. ILEOSTOMY PATENT. UA SENT. STRAINING URINE, NO STONES. FALL PRECAUTIONS IN PLACE. CALL LIGHT WITHIN REACH. WILL CONTINUE TO MONITOR.
[2019-06-04 17:07] LABS: SQUAMOUS 0-3 Few /LPF (0-3); URINE WBC-REFLEX 0-5 Rare /HPF (0-5)
[2019-06-04 17:08] LABS: CASTS None Seen /LPF (None Seen); MUCUS 0-3 Light strn/LPF (None Seen); URINE RBC >20 Many /HPF (0-2)
[2019-06-04 17:11] LABS: URIC ACID CRYSTALS 4-10 Moderate /LPF (None Seen)
[2019-06-04 20:00] VITALS: BP 117/69
[2019-06-05 09:30] VITALS: BP 132/84
--- NOTE | 2019-06-05 10:29 | NUR ---
MET WITH PT TO DISCUSS HOME SITUATION PT LIVES WITH GF/RICHI. HE USES WALKER, CANE AND W/C. IS FAIRLY INDEPENDENT. NIECE LAVERN IS HIS DPOA. PT HAS HAD HH WITH [facility] IN PAST AND WOULD LIKE TO HAVE THEM AGAIN AT [place]. CALLED AND FAXED INITAIL REF TO [facility]. WILL FOLLOW
[2019-06-05 10:46] VITALS: BP 117/69
--- NOTE | 2019-06-05 12:25 | EKG ---
[place] [address] ELECTROCARDIOGRAM REPORT Name: IVETT BRASHER Room: [address] IN .R.#: [id number] Admission: 06/04/19 Attend Phys: Deshaun Carias MD Discharge: Date of : 33 Report #: [id number] THIS REPORT FOR: //name// [facility] ED Test Date: 2019-06-04 Test Time: 00:00:36 Pat Name: IVETT BRASHER Department: Room: [facility] Gender: M Benzene Worker: : 1935 Requested By: Violet James Order Number: [id number] MD: Chad Mejia Measurements Intervals [place] Rate: 87 P: 66 DC: 236 QRS: -40 QRSD: 157 T: -27 QT: 434 QTc: 522 Interpretive Statements Sinus rhythm Prolonged DC interval RBBB and LAFB Compared to ECG 01/16/2019 05:06:14 No significant changes Electronically Signed On 06-05-2019 12:25:43 CDT by Chad Mejia [email or web address] <ELECTRONICALLY SIGNED> By: Chad Mejia MD, [facility] 06/05/19 1225 0000 0000 Chad Mejia MD, [facility] /EPI
[2019-06-05 13:33] VITALS: BP 117/69
--- NOTE | 2019-06-05 16:43 | NUR ---
PATIENT ESCORTED TO SURGERY PER BED BY SURGERY STAFF. FAMILY MEMBERS PRESENT. ~TJRN
[2019-06-05 20:00] VITALS: BP 121/74
--- NOTE | 2019-06-05 20:00 | NUR ---
PT RETURNED FROM SURGERY PER BED ACCOMPANIED BY PACU STAFF. PT DROWSY BUT EASILY AROUSABLE, QAWALANGIN, BUT AO TO SELF AND SITUATION AND RECOGNIZES FAMILY MEMBERS. PT DENIES PAIN AT THIS TIME, TAKING SIPS OF WATER WITHOUT DIFFICULTY. RFA IVF PLACED ON PUMP FOR INFUSION. COLOSTOMY WITH MUSHY BROWN STOOL PRESENT. BRITTON DRAINING BLOODY URINE, PACU STAFF STATES DR IS AWARE. ROOM AIR SAT 95%. WILL CONTINUE TO MONITOR AND PROVIDE CARES NEEDED. CALL LITE IN EASY REACH, BED ALARM ON FOR SAFETY.
[2019-06-06 00:33] VITALS: BP 113/66
[2019-06-06 03:39] LABS: CALCIUM 8.9 mg/dL (8.5-10.1); CREATININE 1.6 mg/dL (0.6-1.3); MAGNESIUM 1.8 mg/dL (1.8-2.4); POTASSIUM 4.4 mmol/L (3.5-5.1)
[2019-06-06 04:00] VITALS: BP 116/77
--- NOTE | 2019-06-06 06:36 | NUR ---
PT SLEPT WELL OVERNIGHT WITHOUT COMPLAINTS OF PAIN OR PROBLEMS. BRITTON DRAINING CRANBERRY COLORED URINE. COLOSTOMY WITH MUSHY BROWN STOOL. TORRES MARTINEZ. RFA IVF INFUSING PER PUMP. VSS. TAKING MEDS WITHOUT DIFFICULTY.ROOM AIR SAT 95%. AOX4. ABLE TO USE CALL LITE AND MAKE NEEDS KNOWN. DNR. AM LABS DRAWN.
[2019-06-06 07:20] VITALS: BP 109/68
[2019-06-06] MEDS ORDERED: LEVSIN0.125 MG SUBLING (07:56)
[2019-06-06 08:52] VITALS: BP 117/69
--- NOTE | 2019-06-06 11:40 | NUR ---
ORDERS RECEIVED FOR DC HOME WITH [facility]i [facility]. PT STILL WANTS TO USE [facility], CALLED AND FAXED ORDERS TO [facility]. PT STATES HE WILL CONTACT SOMEONE TO PICK HIM UP ONCE HIS PAPERWORK IS COMPLETE. DENIES OTHER NEEDS.
--- NOTE | 2019-06-06 12:57 | NUR ---
PT GIVEN DISCHARGE INFORMATION, CARE NOTES, AND PRESCRIPTIONS. IV REMOVED. PT BELONGINGS GATHERED. BRITTON REMOVED. PT VOIDED AND LESS THAN 250 ML IN BLADDER POST VOID. PT DRESSED. PT LEFT VIA WHEELCHAIR WITH NURSING STAFF TO HOME WITH HOME HEALTH. FALL RISK PRECAUTIONS IN PLACE. HOURLY ROUNDING COMPLETED.
[2019-06-06 13:09] VITALS: BP 117/69
--- NOTE | 2019-06-07 11:26 | CON ---
[address] [address] CONSULTATION Name: IVETT BRASHER Room: [address] IN .R.#: [id number] Admission: 06/04/19 Attend Phys: Deshaun Carias MD Discharge: 06/06/19 Date of : 33 Report #: [id number] THIS REPORT FOR: //name// CC: Deshaun Doll [facility] DATE OF SERVICE: 06/04/2019 UROLOGY CONSULTATION REASON FOR CONSULTATION: Left ureteral stones. HISTORY OF PRESENT ILLNESS: The patient is an 83-year-old male known to me from a history of bladder stones for which he underwent cystolitholapaxy in the past. He also has BPH and is managed on Flomax and finasteride. This admission, he presented with left flank pain. CT scan shows several left proximal large obstructing stones. Currently, he is pain free. He says he is urinating okay and denies any other complaints. PAST MEDICAL HISTORY: Includes colon cancer, atrial fibrillation, hypertension, bladder stones, BPH, COPD, chronic kidney disease, chronic pancreatitis. PAST SURGICAL HISTORY: Includes cystolitholapaxy, cardioversion, subtotal colectomy with colostomy, skin cancer removal and biliary stents. ALLERGIES: None. MEDICATIONS: Reviewed. Please see inpatient medical record. FAMILY HISTORY: Noncontributory. SOCIAL HISTORY: The patient denies tobacco or alcohol use. REVIEW OF SYSTEMS: Twelve-point review of systems is performed and is negative except as noted above in HPI. PHYSICAL EXAMINATION: VITAL SIGNS: Temperature is 36.7, pulse 82, respirations 15, blood pressure 150/82. He is 95% on room air. GENERAL: He is a well-developed, well-nourished elderly white male in no acute distress. He is alert and oriented x 3 and answers questions appropriately. HEENT: Normocephalic, atraumatic. He has poor dentition. He is hard of hearing. RESPIRATIONS: Unlabored. HEART: Regular. ABDOMEN: Soft, nontender, [place] [address] CONSULTATION Name: IVETT BRASHER Room: [address]#: [id number] Admission: 06/04/19 Attend Phys: Deshaun Carias MD Discharge: 06/06/19 Date of : 33 Report #: [id number] BACK: He has no CVA tenderness. GENITOURINARY: Unremarkable. EXTREMITIES: Without edema. LABORATORY DATA: White count is 12, hemoglobin 13.5, hematocrit 40.8, platelets 227. His creatinine went up from 1.8-2.0, his baseline is around 1.5-1.6. It looks like UA is pending. CT scan was personally reviewed. He has several proximal left ureteral obstructing stones, looks like maybe about 3 of them, largest was measured around 5 x 9 mm. There were no bladder stones and he has no hydro on the right. ASSESSMENT AND PLAN: 1. Left proximal ureteral obstructing stones. 2. History of benign prostatic hypertrophy. 3. Acute on chronic renal failure. Given his bump in creatinine, he likely will require intervention, especially given the numerous stones that are decently large. I would recommend n.p.o. after midnight. Continue his Flomax and finasteride. We will see if we can get him added on for left ureteroscopy tomorrow but if no surgeon availability may have to be Wednesday. <ELECTRONICALLY SIGNED> By: Bella Lovell MD 06/07/19 1126 1424 [id number] Lovell MD /nt
--- NOTE | 2019-06-08 12:22 | OP ---
[address] [address] OPERATIVE REPORT Name: IVETT BRASHER Room: [address] M.R.#: [id number] Admission: 06/04/19 Attend Phys: Deshaun Carias MD Discharge: 06/06/19 Date of : 33 Report #: [id number] THIS REPORT FOR: //name// CC: Deshaun Doll [facility] DATE OF SERVICE: 06/05/2019 PREOPERATIVE DIAGNOSES: Left ureteral calculi with hydronephrosis and acute renal failure. POSTOPERATIVE DIAGNOSES: Left ureteral calculi with hydronephrosis and acute renal failure. PROCEDURES: Cystoscopy, left retrograde pyelogram, left ureteroscopy, laser lithotripsy, stone extraction, stent placement. SURGEON: Chad Zarco M.D. ANESTHESIA: General. ESTIMATED BLOOD LOSS: None. DRAINS: A 6 x 28 left ureteral stent, 18-Tanzanian Espinosa catheter. SPECIMENS: Stone fragments. COMPLICATIONS: None. INDICATIONS FOR PROCEDURE: This is an 83-year-old male with a history of recurrent stones. He presented with left flank pain and was noted on CT to have multiple left proximal ureteral calculi and also has [id number] renal insufficiency. Alternatives for management were discussed and he has decided to undergo cystoscopy with left retrograde pyelogram, ureteroscopic stone manipulation with laser and stent placement. Risks of procedure were explained including but not limited to bleeding, infection, anesthesia, cardiopulmonary and vascular events, injury to urethra, bladder, ureter, possible development of strictures, stent discomfort, and possible need for further stone procedures. We also discussed the need for timely followup regarding his stones and any stent left in place and the reasoning for that. He voices clear understanding and wished to proceed. DESCRIPTION OF PROCEDURE: The patient was pretreated with IV Rocephin. After induction of general anesthesia, he was positioned, prepped and draped in the lithotomy position. Timeout procedure was performed. Cystourethroscopy was performed. The anterior urethra is within normal [place] [address] OPERATIVE REPORT Name: IVETT BRASHER Room: [address] IN ..#: [id number] Admission: 06/04/19 Attend Phys: Deshaun Carias MD Discharge: 06/06/19 Date of : 33 Report #: [id number] lobe impingement of the prostatic urethra. The bladder was entered and systematically examined. There are crystals and small stones noted in the bladder, which were irrigated out easily through the scope. The ureteral orifices are orthotopic. No blood was seen from either. A 5-Tanzanian ureteral catheter was used to perform a left retrograde pyelogram. The catheter would only pass in a centimeter or so into the left ureter due to J hooking noted on retrograde pyelogram. No filling defects were seen in the distal ureter, but the remainder of the ureter was difficult to evaluate due to the J hooking. A sensor wire was manipulated coaxially through the ureteral catheter and passed up into the proximal ureter. The catheter was then passed over the wire. The wire was removed and further contrast was given. Multiple filling defects were noted in the proximal ureter with dilation proximal to them. The wire was used to bypass the stones and advanced to the region of the renal pelvis. The catheter was advanced over the wire and further contrast given to confirm good placement. The wire was passed back up the catheter. The catheter was removed leaving the wire in place. A semirigid ureteroscope was advanced alongside the wire and into the distal ureter. Distal ureter was normal. The guidewire was noted coursing of the ureter. The rigid ureteroscope was used to pass a second wire to the renal pelvis with visual and fluoroscopic guidance. The scope was removed leaving both wires in place. The 11-Tanzanian obturator for an access sheath was advanced over one of the wires and passes easily with fluoroscopic guidance. This was withdrawn and then passed in tandem with a 13-Tanzanian x 36 cm access sheath. This passes easily over the wire with fluoroscopic guidance. The obturator and wire were removed leaving the sheath in place with a safety wire alongside. Flexible ureteroscope was advanced per the sheath. Manipulation with the scope resulted in the fragments migrating back into the renal pelvis. The remainder of the ureter was examined and there is edema in the proximal ureter with no remaining stones. Scope was advanced to the renal pelvis and the calices were examined. Numerous stones were encountered to the lower pole calices and one of the upper pole calices. These were engaged with a 272 micron holmium laser fiber and laser lithotripsy was performed at 6.4 godoy. Fragments broke up nicely with laser energy. Care was taken to avoid injury to the surrounding tissues and the wire. Represented fragment was extracted with the basket and sent for analysis. Laser lithotripsy was then continued until visualization became difficult due to the amount of debris generated. I do not see any large stones remaining. I elected to place a stent. The scope was withdrawn into the proximal ureter, leaving the wire in place. The proximal ureter was again examined and there were no stones visible. The sheath was withdrawn after which the scope was withdrawn with visual guidance. The remainder of the ureter was examined and there are no remaining stones or other abnormalities except for edema in the proximal ureter. The wire was loaded on the cystoscope and used for placement of a 6 x 28 left ureteral stent with good position confirmed in the renal pelvis fluoroscopically and in the bladder visually. Drainage from the stent was clear. The bladder was left partially filled and the scope was removed. Lidocaine jelly was given per urethra. An 18-Tanzanian Espinosa catheter was then placed and secured. [place] [address] OPERATIVE REPORT Name: IVETT BRASHER Room: [address]#: [id number] Admission: 06/04/19 Attend Phys: Deshaun Carias MD Discharge: 06/06/19 Date of : 33 Report #: [id number] clear. The patient tolerated the procedure well and was taken to the recovery room in stable condition. Plan will be to leave the Espinosa catheter in place at least overnight and monitor his renal function. Further management will depend on followup imaging in his progress. <ELECTRONICALLY SIGNED> By: Chad Zarco MD 06/08/19 1222 [id number] 1937Chad Zarco MD /nt
== END 2019-06-06 13:12 | disposition home health service (06) | DRG 660 ==
LOC: M.ERS 23:55 → M.TBA-ER 06-04 02:51 → M.ORTHSURG 06-04 02:51
PROVIDERS: Emergency Medicine; Internal Medicine; ADMIT Internal Medicine
PROC: 0TC78ZZ Extirpation of Matter from Left Ureter, Via Natural or Artificial Opening Endoscopic (ICD-10-PCS; principal; 2019-06-05)
PROC: 0T778DZ Dilation of Left Ureter with Intraluminal Device, Via Natural or Artificial Opening Endoscopic (ICD-10-PCS; principal; 2019-06-05)
PROC: BT1F1ZZ Fluoroscopy of Left Kidney, Ureter and Bladder using Low Osmolar Contrast (ICD-10-PCS; principal; 2019-06-05)
DX: N13.2 Hydronephrosis with renal and ureteral calculous obstruction (principal); E44.1 Mild protein-calorie malnutrition; K86.1 Other chronic pancreatitis; N17.0 Acute kidney failure with tubular necrosis; J44.9 Chronic obstructive pulmonary disease, unspecified; N40.0 Benign prostatic hyperplasia without lower urinary tract symptoms; N18.3 Chronic kidney disease, stage 3 (moderate); I12.9 Hypertensive chronic kidney disease with stage 1 through stage 4 chronic kidney disease, or unspecified chronic kidney disease; I48.0 Paroxysmal atrial fibrillation; Z90.49 Acquired absence of other specified parts of digestive tract; Z85.89 Personal history of malignant neoplasm of other organs and systems; Z79.01 Long term (current) use of anticoagulants; Z79.899 Other long term (current) drug therapy; Z85.038 Personal history of other malignant neoplasm of large intestine; Z68.24 Body mass index [BMI] 24.0-24.9, adult

== ENCOUNTER → 2019-12-18 | Outpatient (CLI) | payer MEDICARE ==
[~2019-12-18] MED LIST changes: +LEVSIN0.125 MG SUBLING
[2019-12-18 08:34] LABS: ALBUMIN 3.4 g/dL (3.4-5.0); DIRECT BILIRUBIN 0.2 mg/dL (<0.1-0.3); TOTAL BILIRUBIN 0.9 mg/dL (<0.1-1.0); TOTAL PROTEIN 7.2 g/dL (6.4-8.2)
== END ==
LOC: M.RAD 07:57
PROVIDERS: Internal Medicine Cardiovascular Disease
DX: I51.7 Cardiomegaly (principal); Z79.899 Other long term (current) drug therapy

== ENCOUNTER 2020-02-05 09:31 | Observation (INO) | payer MEDICARE ==
[~2020-02-05] VITALS: Ht 188 cm; Wt 90.7 kg
[2020-02-05 09:45] VITALS: BP 126/81
[2020-02-05 10:38] LABS: ABSOLUTE BASOPHILS 0.1 thou/uL (0.0-0.2); ABSOLUTE LYMPHOCYTES 0.9 thou/uL (0.8-5.3); ABSOLUTE MONOCYTES 0.5 thou/uL (0.0-1.2); ABSOLUTE NEUTROPHILS 5.9 thou/uL (1.6-8.1); EOSINOPHILS 0.6 %; HEMATOCRIT 41.3 % (42.0-52.0); HEMOGLOBIN 14.1 gm/dL (14.0-18.0); LYMPHOCYTES 12.1 %; MCH 30.8 pg (26.0-34.0); MCHC 34.2 g/dL (28.0-37.0); MCV 90.2 fL (80.0-100.0); MONOCYTES 7.2 %; MPV 8.9 fl. (7.2-11.1); NUCLEATED RBCS 0 /100WBC; PLATELET COUNT* 194 thou/uL (150-400); POLYS 79.1 %; RBC 4.58 mil/uL (4.50-6.00); RDW-CV 14.6 % (10.5-14.5); WBC 7.5 thou/uL (4.0-11.0)
[2020-02-05 10:47] LABS: INR 1.1; PROTIME 10.8 Seconds (9.20-11.50)
[2020-02-05 10:48] LABS: CALCIUM 8.6 mg/dL (8.5-10.1); CREATININE 1.3 mg/dL (0.6-1.3); POTASSIUM 4.5 mmol/L (3.5-5.1)
[2020-02-05 11:03] LABS: ALBUMIN 3.1 g/dL (3.4-5.0); TOTAL BILIRUBIN 1.3 mg/dL (<0.1-1.0); TOTAL PROTEIN 6.7 g/dL (6.4-8.2)
--- NOTE | 2020-02-05 16:15 | 2DMMODE ---
[place] [address] 2 D/M-MODE ECHOCARDIOGRAM Name: SAMEERAIVETT L Room: [place] [address] ADM IN Irina#: [id number] Admission: 02/05/20 Attend Phys: Deshaun Carias, Discharge: Date of : 31 Date of Service: 02/05/20 1613 Report #: [id number] THIS REPORT FOR: cc: Alvina Cabello Sarah Anne FNP Blick, David R. MD [facility] ~ ADDENDUM APPROVED REPORT Study performed: 02/05/2020 15:18:30 EXAM: Comprehensive 2D, Doppler, and color-flow Echocardiogram Patient Location: In-Patient Room #: er Status: routine BSA: 2.15 HR: 64 bpm BP: 110/58 mmHg Rhythm: NSR Other Information Study Quality: Good Indications CVA/TIA Echo Enhancing Agent Indication: Rule out Shunt Agent(s) / Amount(s) Used: Agitated Saline 10 cc 2D Dimensions IVSd: 18.00 (7-11mm) LVOT Diam: 23.75 (18-24mm) LVDd: 52.76 mm PWd: 11.31 (7-11mm) Ascending Ao: 40.61 (22-36mm) LVDs: 44.03 (25-40mm) Aortic Root: 41.45 mm Volumes Left Atrial Volume (Systole) LA ESV Index: 51.20 mL/m2 Aortic Valve AoV Peak Zack.: 1.07 m/s AO Peak Gr.: 4.56 mmHg LVOT Max P.24 mmHg AO Mean Gr.: 2.36 mmHg LVOT Mean P.27 [place] [address] 2 D/M-MODE ECHOCARDIOGRAM Name: IVETT BRASHER Room: [address] IN [facility]#: [id number] Admission: 02/05/20 Attend Phys: Deshaun Carias, Discharge: Date of : 31 Date of Service: 02/05/20 1613 Report #: [id number] LVOT Max V: 0.75 m/s AO V2 VTI: 18.42 cm LVOT Mean V: 0.54 m/s ROBERT (VTI): 3.21 cm2 LVOT V1 VTI: 13.33 cm AI Bond: 1.61 m/s2 AI PHT: 694.42 ms Mitral Valve E/A Ratio: 2.10 MV Decel. Time: 392.41 ms MV E Max Zack.: 0.54 m/s MV PHT: 113.80 ms MVA (PHT): 1.93 cm2 TDI E/Lateral E': 7.71 E/Medial E': 13.50 Medial E' Zack.: 0.04 m/s Lateral E' Zack.: 0.07 m/s Pulmonary Valve PV Peak Zack.: 0.74 m/s PV Peak Gr.: 2.18 mmHg Tricuspid Valve RAP Estimate: 5.00 mmHg TR Peak Gr.: 34.48 mmHg RVSP: 39.00 mmHg PA Pressure: 39.00 mmHg Left Ventricle The left ventricle is normal size. There is normal LV segmental wall motion. Mild concentric left ventricular hypertrophy. Left ventricular systolic function is mildly decreased. LVEF is 45-50%. Right Ventricle Right ventricle is dilated. The right ventricular systolic function is normal. Atria Left atrium is severely dilated. The interatrial septum is intact with no evidence for an atrial septal defect. Right atrium is dilated. Aortic Valve The aortic valve is normal in structure. Mild aortic regurgitation. There is no aortic valvular stenosis[place] [address] 2 D/M-MODE ECHOCARDIOGRAM Name: IVETT BRASHER Room: [address] IN [facility]#: [id number] Admission: 02/05/20 Attend Phys: Deshaun Carias, Discharge: Date of : 31 Date of Service: 02/05/20 1613 Report #: [id number] There is mitral annular calcification. Mild mitral regurgitation. No evidence of mitral valve stenosis. Tricuspid Valve The tricuspid valve is normal in structure. Mild tricuspid regurgitation. estimated pa pressure 50 mm Hg Pulmonic Valve The pulmonary valve is normal in structure. Mild pulmonic regurgitation. Great Vessels Aortic root is mildly dilated. The inferior vena cava is not well visualized. Pericardium There is no pericardial effusion. <Conclusion> Mild concentric left ventricular hypertrophy. LVEF is 45-50%. Left atrium is severely dilated. Mild aortic regurgitation. Mild mitral regurgitation. Mild tricuspid regurgitation. estimated pa pressure 50 mm Hg The interatrial septum is intact with no evidence for an atrial septal defect. <ELECTRONICALLY SIGNED> By: Oswald Nesbitt MD, FACC 02/05/20 1613 161 161 Oswald Nesbitt MD, FACC /INF
--- NOTE | 2020-02-05 16:22 | EKG ---
[place] [address] ELECTROCARDIOGRAM REPORT Name: IVETT BRASHER Room: [place] [address] ADM IN [facility]#: [id number] Admission: 02/05/20 Attend Phys: Deshaun Carias, Discharge: Date of : 31 Date of Service: 02/05/20 0957 Report #: [id number] THIS REPORT FOR: //name// [facility] ED Test Date: 2020-02-05 Test Time: 09:57:17 Pat Name: IVETT BRASHER Department: Room: [facility] Gender: M Warpman: LUZ ELENA : 1935 Requested By: Cruz Butler Order Number: [id number] MD: Oswald Nesbitt Measurements Intervals [place] Rate: 63 P: MT: QRS: -70 QRSD: 168 T: -14 QT: 506 QTc: 519 Interpretive Statements sinus rhythm with first degree av block RBBB and LAFB Compared to ECG 06/04/2019 00:00:36 rate decreased Electronically Signed On 02-05-2020 16:21:16 CDT by Oswald Nesbitt [email or web address] <ELECTRONICALLY SIGNED> By: Oswald Nesbitt MD, [facility] 02/05/20 1621 0957 0957 Oswald Nesbitt MD, [facility] /EPI
[2020-02-05 17:16] VITALS: BP 118/46
--- NOTE | 2020-02-05 19:45 | NUR ---
DR BOND NOTIFIED RE: PT C/O HEADACHE ET "O" FOR MEDICATION GIVEN ET TRANSCRIBED ET FAXED TO PHARMACY
[2020-02-05 20:00] VITALS: BP 95/56
[2020-02-05 20:30] VITALS: BP 110/50
[2020-02-05 23:33] LABS: URINE BILIRUBIN NEGATIVE (Negative); URINE BLOOD NEGATIVE (Negative); URINE CLARITY CLEAR; URINE COLOR YELLOW; URINE GLUCOSE-RANDOM NEGATIVE (Negative); URINE KETONES NEGATIVE (Negative); URINE LEUKOCYTES-REFLEX NEGATIVE (Negative); URINE NITRITE-REFLEX NEGATIVE (Negative); URINE PROTEIN NEGATIVE (Negative); URINE SPECIFIC GRAVITY >= 1.030 (1.005-1.030); URINE UROBILINOGEN 0.2 E.U./dl (0.2-1.0)
[2020-02-06] VITALS: BP 112/64
[2020-02-06 03:07] LABS: GLYCOHEMOGLOBIN (HGB A1C) 6.1 % (4.8-5.6)
[2020-02-06 03:57] LABS: ABSOLUTE EOSINOPHILS 0.1 thou/uL (0.0-0.7); ABSOLUTE LYMPHOCYTES 1.2 thou/uL (0.8-5.3); ABSOLUTE MONOCYTES 0.8 thou/uL (0.0-1.2); ABSOLUTE NEUTROPHILS 5.2 thou/uL (1.6-8.1); BASOPHILS 0.6 %; EOSINOPHILS 1.3 %; HEMATOCRIT 38.4 % (42.0-52.0); LYMPHOCYTES 16.3 %; MCH 30.9 pg (26.0-34.0); MCHC 33.9 g/dL (28.0-37.0); MCV 91.3 fL (80.0-100.0); MONOCYTES 10.6 %; MPV 8.9 fl. (7.2-11.1); NUCLEATED RBCS 0 /100WBC; PLATELET COUNT* 169 thou/uL (150-400); POLYS 71.2 %; RBC 4.21 mil/uL (4.50-6.00); RDW-CV 14.6 % (10.5-14.5); WBC 7.3 thou/uL (4.0-11.0)
[2020-02-06 04:00] VITALS: BP 110/63
[2020-02-06 04:26] LABS: CHOLESTEROL 101 mg/dL (<200); HDL CHOLESTEROL 41 mg/dL (>40); LDL CHOLESTEROL 48 mg/dL (<100); TC:HDL 2.5 Ratio (Not establshd); TRIGLYCERIDE 63 mg/dL (<150); VLDL 13 mg/dL (<40)
[2020-02-06 04:56] LABS: SERUM ASSESSMENT Clear
[2020-02-06 06:09] LABS: CALCIUM 8.2 mg/dL (8.5-10.1); CREATININE 1.5 mg/dL (0.6-1.3); POTASSIUM 4.2 mmol/L (3.5-5.1)
--- NOTE | 2020-02-06 07:46 | NUR ---
Shift uneventful. Pt is aox4, running SR on telemetry, respirations are even and unlabored on room air. Pt is medically stable at this time.
[2020-02-06 08:00] VITALS: BP 143/81
--- NOTE | 2020-02-06 15:42 | NUR ---
AWAITING NEURO EVAL FOR DC. PT AND FAMILY UPDATED.
--- NOTE | 2020-02-06 16:45 | NUR ---
PT RESTING IN BED MOST OF SHIFT. UP TO BR WITH SB ASSIST. TOLERATING PO WELL. PT DENIES DIZZINESS. NSR ON MONITOR. MRI PLANNED FOR AM. FAMILY UPDATED ON PLAN OF CARE
[2020-02-06 17:30] VITALS: BP 122/69
[2020-02-06 20:00] VITALS: BP 120/70
[2020-02-06 23:58] VITALS: BP 107/63
[2020-02-07 04:00] VITALS: BP 137/74
--- NOTE | 2020-02-07 07:59 | NUR ---
Pt is aox4, running SR w/ PACs on telemetry, respirations are even and unlabored on room air. Around 0400 pt reported nausea without emesis and 6/10 cramping pain to the lower middle of the abdomen. Ondansetron and hyoscyamine were administered for nausea and suspected bladder spasms. On reassessment pt reported full relief of symptoms. Pt is medically stable at this time.
[2020-02-07 08:01] VITALS: BP 164/74
--- NOTE | 2020-02-07 11:37 | NUR ---
Pt discharging to home today with [facility] , faxed referral
[2020-02-07 12:00] VITALS: BP 118/71
[2020-02-07 12:30] VITALS: BP 164/74
--- NOTE | 2020-02-07 14:02 | NUR ---
DC ORDERS RECEIVED. IV AND MONITOR REMOVED. PT. GIVEN DC INSTRUCITONS, VERBALIZED UNDERSTANDING. PT. LEFT VIA WHEELCHAIR TO RETURN HOME IN PERSONAL VEHICLE WITH [facility]. ALL BELONGINGS ACCOUNTED FOR.
== END 2020-02-07 14:00 | disposition home or self-care (01) ==
LOC: M.ERS 09:31 → M.2W 12:58 → M.TBA-ER 12:58 → M.2W 12:58 → M.TBA-ER 12:58 → M.2W 21:00
PROVIDERS: Emergency Medicine; ADMIT Internal Medicine
DX: R42 Dizziness and giddiness (principal); I48.91 Unspecified atrial fibrillation; E46 Unspecified protein-calorie malnutrition; I10 Essential (primary) hypertension; J44.9 Chronic obstructive pulmonary disease, unspecified; R33.9 Retention of urine, unspecified; K86.1 Other chronic pancreatitis; E88.09 Other disorders of plasma-protein metabolism, not elsewhere classified; I12.9 Hypertensive chronic kidney disease with stage 1 through stage 4 chronic kidney disease, or unspecified chronic kidney disease; N18.3 Chronic kidney disease, stage 3 (moderate); I42.9 Cardiomyopathy, unspecified; Z79.01 Long term (current) use of anticoagulants; Z87.442 Personal history of urinary calculi

== ENCOUNTER 2021-01-04 03:58 | Emergency (ER) | payer MEDICARE ==
[~2021-01-04] VITALS: Ht 185.4 cm; Wt 88.5 kg
[2021-01-04] MEDS ORDERED: PACERONE100 MG PO (04:16)
[2021-01-04] MEDS ORDERED: ASPIR-TRIN325 MG PO (04:17)
[2021-01-04] MEDS ORDERED: PHENERGAN 25 MG25 M1 PO (04:18)
[2021-01-04] MEDS ORDERED: LEXAPRO 10 MG T10 M2 PO (04:18)
[2021-01-04] MEDS ORDERED: HYDROCODON-ACE1 EAC7 PO (04:19)
[2021-01-04] MEDS ORDERED: MORPHINE 00.5 MG/1 M PO (04:21)
[2021-01-04] MEDS ORDERED: HALDOL5 MG/1 ML PO (04:22)
[2021-01-04] MEDS ORDERED: LORAZEPAM2 MG/1 M1 PO (04:22)
[2021-01-04] MEDS ORDERED: COMPAZINE25 M1 RECTAL (04:24)
[2021-01-04 05:13] LABS: INR 1.1
[2021-01-04 05:14] LABS: CALCIUM 9.3 mg/dL (8.5-10.1); CREATININE 1.5 mg/dL (0.6-1.3); POTASSIUM 4.1 mmol/L (3.5-5.1)
[2021-01-04 05:25] LABS: ALBUMIN 3.2 g/dL (3.4-5.0); MAGNESIUM 1.9 mg/dL (1.8-2.4); TOTAL BILIRUBIN 1.6 mg/dL (<0.1-1.0); TOTAL PROTEIN 6.5 g/dL (6.4-8.2)
[2021-01-04 05:36] LABS: URINE BLOOD NEGATIVE (Negative); URINE CLARITY CLEAR; URINE COLOR YELLOW; URINE GLUCOSE-RANDOM NEGATIVE (Negative); URINE KETONES NEGATIVE (Negative); URINE LEUKOCYTES-REFLEX NEGATIVE (Negative); URINE NITRITE-REFLEX NEGATIVE (Negative); URINE PROTEIN NEGATIVE (Negative); URINE SPECIFIC GRAVITY >= 1.030 (1.005-1.030); URINE UROBILINOGEN 0.2 E.U./dl (0.2-1.0)
[2021-01-04 06:09] LABS: URINE BILIRUBIN 1+ (Negative)
[2021-01-04 06:12] LABS: ICTOTEST (BILI CONFIRMATORY) Positive (Negative)
[2021-01-04 06:33] LABS: ABSOLUTE BASOPHILS 0.1 thou/uL (0.0-0.2); ABSOLUTE EOSINOPHILS 0.1 thou/uL (0.0-0.7); ABSOLUTE LYMPHOCYTES 0.6 thou/uL (0.8-5.3); ABSOLUTE MONOCYTES 0.6 thou/uL (0.0-1.2); ABSOLUTE NEUTROPHILS 5.2 thou/uL (1.6-8.1); EOSINOPHILS 1.2 %; HEMATOCRIT 42.7 % (42.0-52.0); HEMOGLOBIN 13.7 gm/dL (14.0-18.0); LYMPHOCYTES 9.2 %; MCH 28.9 pg (26.0-34.0); MCV 90.3 fL (80.0-100.0); MONOCYTES 9.2 %; NUCLEATED RBCS 0 /100WBC; PLATELET COUNT* 190 thou/uL (150-400); POLYS 79.4 %; RBC 4.73 mil/uL (4.50-6.00); WBC 6.5 thou/uL (4.0-11.0)
[2021-01-04 10:26] VITALS: BP 133/89
--- NOTE | 2021-01-06 11:06 | EKG ---
[place] [address] ELECTROCARDIOGRAM REPORT Name: IVETT BRASHER Room: [facility]#: [id number] Admission: 01/04/21 Attend Phys: Discharge: 01/04/21 Date of : 31 Date of Service: 01/04/21 0434 Report #: [id number] THIS REPORT FOR: //name// [facility] ED Test Date: 2021-01-04 Test Time: 04:34:52 Pat Name: IVETT BRASHER Department: Room: Gender: Pest Control Worker: : 1935 Requested By: Violet James Order Number: [id number] MD: Oswald Nesbitt Measurements Intervals [place] Rate: 98 P: 0 AK: 100 QRS: -87 QRSD: 177 T: -23 QT: 442 QTc: 565 Interpretive Statements junctional rhythm left anterior fasicular block Right bundle branch block Baseline wander in lead(s) II,III,aVF Compared to ECG 02/05/2020 09:57:17 junctional rhythm now present Electronically Signed On 01-06-2021 11:05:47 TRAIN OPERATIONS MANAGER by Oswald Nesbitt [email or web address] <ELECTRONICALLY SIGNED> By: Oswald Nesbitt MD, FACC 01/06/21 1105 0434 0434 Oswald Nesbitt MD, FAC /EPI
== END 2021-01-04 10:29 | disposition home or self-care (01) ==
LOC: M.ERS 03:58
PROVIDERS: Emergency Medicine
DX: S22.42XA Multiple fractures of ribs, left side, initial encounter for closed fracture (principal); S32.010A Wedge compression fracture of first lumbar vertebra, initial encounter for closed fracture; S01.112A Laceration without foreign body of left eyelid and periocular area, initial encounter; S70.12XA Contusion of left thigh, initial encounter; Z20.822 Contact with and (suspected) exposure to COVID-19; I10 Essential (primary) hypertension; J44.9 Chronic obstructive pulmonary disease, unspecified; I48.91 Unspecified atrial fibrillation; Z85.038 Personal history of other malignant neoplasm of large intestine; Z85.828 Personal history of other malignant neoplasm of skin; Z87.442 Personal history of urinary calculi; W18.39XA Other fall on same level, initial encounter; Y93.89 Activity, other specified; Y92.128 Other place in nursing home as the place of occurrence of the external cause; Y99.8 Other external cause status